=== PATIENT | male | born 1985 | race Two or more races ===

== ENCOUNTER 2016-10-22 12:53 | Emergency (ER) | payer OTHER ==
--- NOTE | ~2016-10-22 | CT2 ---
[facility] A Service of [facility] RADIOLOGY TEXT RESULTS PATIENT: ARELIS MCGOWAN LOCATION: [facility] : 87 UNIT #: [id number] AGE: [address]: Lay Robles SEX: M ORDER DR: [id number] [facility] [place] [address] [place], [place] [address] [id number] MR#: [id number] #: [id number] NAME: ARELIS MCGOWAN. : 1985 SEX: M STUDY DATE/TIME: 10/22/2016 14:18 UNIT: [facility] ROOM: STUDY DESCRIPTION: CT Abd and Pelv W Cont Attending Physician: Lay Robles Pa-C Ordering Physician: Lay Robles Pa-C Primary Care Physician: Primary Care Physician No MEDICAL IMAGING REPORT This report is preliminary unless electronic signature is present EXAM CT of the abdomen and pelvis with IV contrast media HISTORY SUPPLIED Left flank pain for 8 days TECHNIQUE Transaxial imaging of the abdomen and pelvis and normal IV contrast media. This CT exam was performed with one or more of the following radiation dose reduction techniques: automatic exposure control, adjustment of mA and/or kV according to patient size, and iterative reconstruction. FINDINGS Scans through the lung bases show no acute findings. There is diffuse hepatic steatosis. Gallbladder is normal. Spleen is of normal size, adrenal glands and pancreas are normal. Both the right and left kidney are normal. No dilated or thickened loops of bowel are identified in the upper abdomen. There is colonic diverticulosis without evidence of diverticulitis. The appendix is normal. Bladder appears unremarkable. Prostate and seminal vesicles is normal. IMPRESSION Diffuse hepatic steatosis. CT of the abdomen and pelvis is otherwise negative. Dictated by... Vj Ma M.D. THIS IS AN ELECTRONICALLY VERIFIED REPORT Vj Ma M.D. at 10/24/2016 3:10 PM KIERSTEN/azra TD: 10/22/2016 19:07 [facility] A Service of [facility] RADIOLOGY TEXT RESULTS PATIENT: ARELIS MCGOWAN LOCATION: [facility] #: [id number] : [birth year] UNIT #: [id number] AGE: [address]: Lay Robles SEX: M ORDER DR: JOB #: [id number] MEDICAL IMAGING REPORT Page 1 of 1 COPY
[2016-10-22 11:05] LABS: URINE SOURCE CLEAN CATCH
[2016-10-22 11:11] LABS: URINE APPEARANCE CLEAR; URINE BILIRUBIN NEG (NEG); URINE BLOOD TRACE (NEG); URINE COLOR YELLOW; URINE GLUCOSE NEG (NEG); URINE KETONE NEG (NEG); URINE LEUKOCYTE ESTERASE 1+ (NEG); URINE NITRATE NEG (NEG); URINE PH 5.5 (5-8); URINE PROTEIN NEG (NEG); URINE SPECIFIC GRAVITY 1.029 (1.003-1.035); URINE UROBILINOGEN 0.2 MG/DL (NEG)
[2016-10-22 11:13] LABS: CULTURE INDICATED? YES; URBCS1 AUWI 0-2 /[HPF] (0-2); URINE BACTERIA AUWI NEG (NEGATIVE); URINE SQUAMOUS EPITHELIAL CELL NONE SEEN /[HPF]
[2016-10-22 12:53] LABS: BASOPHIL% 0.5 % (0-2.5); EOSINOPHIL# 0.1 X10e3 (0-0.7); EOSINOPHIL% 1.4 % (0.0-7.0); HEMATOCRIT 48.4 % (38.0-50.0); HEMOGLOBIN 15.9 gm/dL (13.0-16.0); LYMPHOCYTE# 2.5 X10e3 (1.0-3.5); LYMPHOCYTE% 31.5 % (17.0-45.0); MEAN CELL VOLUME 83.1 FL (83-96); MEAN CORPUSCULAR HEMOGLOBIN 27.3 PG (28-34); MEAN CORPUSCULAR HGB CONC 32.9 g/dL (30-36); MEAN PLATELET VOLUME 7.8 FL (6.5-11.5); MONOCYTE# 0.7 X10e3 (0-1.0); MONOCYTE% 8.9 % (3.0-12.0); NEUTROPHIL# 4.6 X10e3 (1.5-7.1); NEUTROPHIL% 57.7 % (40-75); PLATELET COUNT 242 X10e3 (140-420); RED BLOOD COUNT 5.82 X10e (3.90-5.60); RED CELL DISTRIBUTION WIDTH 13.8 % (11.0-15.5)
[~2016-10-22 12:53] MED LIST: COLESTID PO; FLEXERIL PO; MOTRIN PO; NO MEDICATIONS
[2016-10-22 12:55] LABS: DIFF IND NO
[2016-10-22 13:25] LABS: ALBUMIN SERUM 4.5 g/dL (3.5-5.0); ALKALINE PHOSPHATASE 38 U/L (32-92); ALT (SGPT) 35 U/L (10-40); AST (SGOT) 22 U/L (10-42); BILIRUBIN,TOTAL 0.8 mg/dL (0.2-2.0); BLOOD UREA NITROGEN 18 mg/dL (9-23); CALCIUM SERUM 8.9 mg/dL (8.4-10.2); CARBON DIOXIDE 25 mmol/L (22-31); CHLORIDE 107 mmol/L (100-111); CREATININE SERUM 0.9 mg/dL (0.6-1.4); GLOM FILT RATE Estimated ABOVE60 mL/min (>60); GLUCOSE FASTING 105 mg/dL (70-110); POTASSIUM 3.8 mmol/L (3.5-5.1); PROTEIN TOTAL SERUM 7.9 g/dL (6.0-8.3); SODIUM 135 mmol/L (135-145)
== END 2016-10-22 15:45 | disposition home or self-care (01) ==
LOC: CED 12:53
PROVIDERS: Emergency Medicine; Physician Assistant Medical
DX: R10.31 Right lower quadrant pain (principal); R10.32 Left lower quadrant pain; R19.7 Diarrhea, unspecified; Z79.899 Other long term (current) drug therapy
CPT/HCPCS: 36415; 74177; 80053; 81003; 85025; 87086; 96360; 99284; Q9967